=== PATIENT | female | born 1960 | race Caucasian/White ===

== ENCOUNTER → 2017-08-15 | Outpatient (CLI) | payer MEDICAID | END | disposition home or self-care (01) | LOC: CFH 09:46 | PROVIDERS: ATTEND Nurse Practitioner | DX: R94.5 Abnormal results of liver function studies (principal) | CPT/HCPCS: 76700 ==

== ENCOUNTER → 2020-08-30 | Outpatient (CLI) | payer MEDICAID | END | disposition home or self-care (01) | LOC: CFH 07:11 | PROVIDERS: ATTEND Internal Medicine Gastroenterology | DX: R11.2 Nausea with vomiting, unspecified (principal); R74.8 Abnormal levels of other serum enzymes; R53.83 Other fatigue; Z90.49 Acquired absence of other specified parts of digestive tract | CPT/HCPCS: 76700 ==

== ENCOUNTER → 2020-09-20 | Outpatient (CLI) | payer MEDICAID ==
[~2020-09-20] MED LIST: OMNIPAQUE 350 MG/ML, 100ML BOTTLE ONE
== END | disposition home or self-care (01) ==
LOC: CFH 13:23
PROVIDERS: ATTEND Internal Medicine Gastroenterology
DX: N28.89 Other specified disorders of kidney and ureter (principal); Z90.49 Acquired absence of other specified parts of digestive tract
CPT/HCPCS: 74170; Q9967

== ENCOUNTER 2021-06-22 14:39 | Emergency (ER) | payer MEDICAID ==
[~2021-06-22] VITALS: Ht 167.6 cm; Wt 78.1 kg
--- NOTE | 2021-06-22 15:00 | NUR ---
Pt walking from triage with tech with steady gait to room and changing into gown at this time.
--- NOTE | 2021-06-22 15:14 | NUR ---
RN and PA assessments completed. Pt up to restroom to give UA sample after being given clean catch instructions.
[2021-06-22 15:33] LABS: BASOPHILS % (AUTO) 1 % (0-1); EOSINOPHILS % (AUTO) 2 % (1-7); LYMPHOCYTES % (AUTO) 22 % (22-44); MEAN CORPUSCULAR HEMOGLOBIN 31.3 pg (27.0-34.8); MEAN CORPUSCULAR HGB CONC 33.7 g/dL (32.4-35.8); MEAN PLATELET VOLUME 7.4 fL (7.4-10.4); MONOCYTES % (AUTO) 9 % (2-9); NEUTROPHILS % (AUTO) 66 % (42-75); PLATELET COUNT 344 x10^3/uL (130-400); RED BLOOD COUNT 4.28 x10^6/uL (3.82-5.3); RED CELL DISTRIBUTION WIDTH 13.3 % (9.6-15.2)
[2021-06-22 15:44] LABS: ALANINE AMINOTRANSFERASE 49 U/L (12-78); ALBUMIN 3.5 g/dL (3.4-5.0); ANION GAP 3 mmol/L (5-15); CALCIUM 8.6 mg/dL (8.5-10.1); CHLORIDE 109 mmol/L (98-107); CREATININE 0.97 mg/dL (0.55-1.02)
[2021-06-22 15:46] LABS: ALKALINE PHOSPHATASE 145 U/L (45-117); BILIRUBIN,TOTAL 0.3 mg/dL (0.2-1.0)
--- NOTE | 2021-06-22 15:46 | NUR ---
Pt to CT at this time.
[2021-06-22] MEDS ORDERED: PROP10TA16 PO (15:49)
[2021-06-22] MEDS ORDERED: OMEP-110 PO (15:49)
[2021-06-22] MEDS ORDERED: CIPR500T4 PO (15:49)
[2021-06-22] MEDS ORDERED: PLEC3TAB2 PO (15:49)
[2021-06-22] MEDS ORDERED: ASPI-691 PO (15:49)
[2021-06-22] MEDS ORDERED: ZONI100C29 PO (15:49)
[2021-06-22] MEDS ORDERED: VENL100T PO (15:49)
[2021-06-22] MEDS ORDERED: GABA300C PO (15:49)
[2021-06-22] MEDS ORDERED: TRAZ50TA66 PO (15:49)
--- NOTE | 2021-06-22 15:53 | NUR ---
Pt back to room without acute change noted.
[2021-06-22 15:57] LABS: MICROSCOPIC INDICATED
--- NOTE | 2021-06-22 16:15 | NUR ---
All lab and CT results reviewed, chart marked for PA recheck at this time. Noted UA sent for culture.
--- NOTE | 2021-06-22 16:57 | NUR ---
Pt assisted off monitor so she can use the restroom again.
--- NOTE | 2021-06-22 17:00 | NUR ---
PA at bedside to discuss findings and plan for discharge.
[2021-06-22 17:07] VITALS: BP 116/66
== END 2021-06-22 17:09 | disposition home or self-care (01) ==
LOC: ED 17:00
DX: R30.0 Dysuria (principal); R10.2 Pelvic and perineal pain; R10.30 Lower abdominal pain, unspecified; Z90.710 Acquired absence of both cervix and uterus; Z88.6 Allergy status to analgesic agent; Z88.5 Allergy status to narcotic agent
CPT/HCPCS: 36415; 74176; 80053; 81001; 85025; 87086; 99284